=== PATIENT | female | born 1965 | race Caucasian/White ===

== ENCOUNTER 2016-10-04 06:17 | Emergency (ER) | payer MEDICARE, MEDICAID ==
[2016-10-04] MEDS ORDERED: KETOROLAC 60 MG/2 ML VIAL IVP STA (06:58)
[2016-10-04] MEDS ORDERED: HYDROmorphone 1 MG/ML SYRINGE IVP STA (06:58)
[2016-10-04] MEDS ORDERED: KETOROLAC 30 MG/ML VIAL ONE (07:02)
[2016-10-04] MEDS ORDERED: HYDROmorphone 1 MG/ML SYRINGE ONE (07:02)
[2016-10-04] MEDS ORDERED: DEXAMETHASONE 10 MG/ML VIAL IVP STA (08:27)
[2016-10-04] MEDS ORDERED: DEXAMETHASONE 10 MG/ML VIAL ONE (08:38)
[2016-10-04] MEDS ORDERED: SODIUM CHLORIDE 0.9% 1,000 ML IV ONE (09:32)
[2016-10-04] MEDS ORDERED: HYDROcod/ACETAM 5/325 MG TABLET PO STA (09:50)
[2016-10-04] MEDS ORDERED: HYDROcod/ACETAM 5/325 MG TABLET ONE (10:07)
== END 2016-10-04 10:42 | disposition home or self-care (01) ==
DX: S29.012A Strain of muscle and tendon of back wall of thorax, initial encounter (principal); X50.0XXA Overexertion from strenuous movement or load, initial encounter; Y93.E9 Activity, other interior property and clothing maintenance; Y99.0 Civilian activity done for income or pay; I10 Essential (primary) hypertension; E11.9 Type 2 diabetes mellitus without complications; Z79.84 Long term (current) use of oral hypoglycemic drugs; F17.200 Nicotine dependence, unspecified, uncomplicated
CPT/HCPCS: 36415; 71020; 80053; 83690; 84484; 85025; 85651; 93005; 93010; 96374; 96375; 99283; 99285; A9270; J1170

== ENCOUNTER 2016-10-29 04:26 | Emergency (ER) | payer MEDICARE, MEDICAID ==
[2016-10-29] MEDS ORDERED: levoFLOXacin 250 MG TABLET PO STA (05:26)
[2016-10-29] MEDS ORDERED: ACETAMINOPHEN 500 MG TABLET PO ONE (05:28)
[2016-10-29] MEDS ORDERED: ACETAMINOPHEN 500 MG TABLET PO STA (05:28)
[2016-10-29] MEDS ORDERED: levoFLOXacin 250 MG TABLET PO ONE (05:28)
== END 2016-10-29 05:55 | disposition home or self-care (01) ==
DX: J18.9 Pneumonia, unspecified organism (principal); I10 Essential (primary) hypertension; E11.9 Type 2 diabetes mellitus without complications; M79.7 Fibromyalgia; F17.200 Nicotine dependence, unspecified, uncomplicated
CPT/HCPCS: 36415; 71020; 80053; 83690; 85025; 99283; 99284; A9270

== ENCOUNTER 2016-12-02 11:54 | Outpatient (CLI) | payer MEDICARE, MEDICAID ==
--- NOTE | 2016-12-03 22:33 | Mammography Report ---
DIGITAL BILATERAL SCREENING MAMMOGRAM: 12/02/2016 CLINICAL HISTORY: A 51-year-old female in for routine screening mammogram. Patient does have a fami ly history of breast cancer. Maternal aunt at age 53 and a maternal cousin at age 32 developed breas t cancer. Patient has had no prior breast surgeries. COMPARISON: 04/10/2012 TECHNIQUE: Craniocaudad and oblique lateral views of each breast were obtained with [employer] full fie ld digital mammography. FINDINGS: Breast parenchyma is almost entirely composed of fat. Two small, well-circumscribed magy s are noted on oblique lateral view of the right breast. These are seen immediately posterior to the right subareolar region. There is also a small well-circumscribed mass at the 5-6 o'clock position of the right breast. These each measure 2-3 mm in diameter and are of benign etiology. No significa nt clusters of calcification are seen. IMPRESSION: BREASTS APPEAR RADIOGRAPHICALLY BENIGN. BIRADS CATEGORY: 2, BENIGN. RECOMMENDATION: ANNUAL BILATERAL SCREENING MAMMOGRAPHY. STANDARD QUALIFYING STATEMENTS 1. This examination was reviewed with the aid of Computed-Aided Detection (CAD). 2. A negative or benign imaging report should not delay biopsy if clinically suspicious findings are present. Consider surgical consultation if warranted. More than 5% of cancers are not identified b y imaging. 3. Dense breasts may obscure an underlying neoplasm. JOB #: [id number] EXT JOB #:[id number]
== END 2016-12-02 11:55 | disposition home or self-care (01) ==
LOC: DI 11:54
PROVIDERS: ATTEND Internal Medicine
DX: Z12.31 Encounter for screening mammogram for malignant neoplasm of breast (principal); Z80.3 Family history of malignant neoplasm of breast
CPT/HCPCS: 77067

== ENCOUNTER 2017-09-13 15:20 | Emergency (ER) | payer SELFPAY ==
[2017-09-13 16:35] LABS: BILIRUBIN,URINE NEGATIVE (NEGATIVE); CLARITY,URINE SL. CLOUDY (CLEAR); GLUCOSE, URINE (UA) >=1000 mg/dL (NEGATIVE); KETONES,URINE (UA) TRACE mg/dL (NEGATIVE); LEUKOCYTE ESTERASE, URINE TRACE (NEGATIVE); NITRITE,URINE POSITIVE (NEGATIVE); OCCULT BLOOD,URINE SMALL (NEGATIVE); PH,URINE 5.5 PH (5.0-7.5); PROTEIN,URINE 100 mg/dL (NEGATIVE); UROBILINOGEN,URINE 0.2 (NORMAL) E.U./dL (NORMAL)
[2017-09-13 16:42] LABS: BACTERIA,URINE Few /HPF (None Seen); CASTS, URINE 0-2 Fine Granular /LPF; SQUAMOUS EPITHELIAL CELL,UR FEW Squamous (<= Few)
--- NOTE | 2017-09-13 17:23 | ED Physician Documentation ---
PD HPI FEMALE - Stated complaint Stated Complaint: FEMALE - Chief complaint Chief Complaint: UTI - History obtained from History obtained from: Patient - History of Present Illness Timing - onset: Yesterday Timing - duration: Days (2) Timing - details: Gradual onset, Still present Associated symptoms: Back pain, Dysuria, Urinary frequency Contributing factors: No: Similar symptoms before: Diagnosis (UTI) Recently seen: Not recently seen - Additional information Additional information: 51-year-old female has developed signs and symptoms urinary tract infection yesterday. She had has had urinary urgency frequency and dysuria she has some low back pain and some pain in the lower pelvic area. Review of Systems Constitutional: reports: Chills. denies: Fever Eyes: denies: Decreased vision Ears: denies: Ear pain Nose: denies: Rhinorrhea / runny nose, Congestion Throat: denies: Sore throat Cardiac: denies: Chest pain / pressure Respiratory: denies: Cough GI: reports: Abdominal Pain. denies: Nausea, Vomiting : reports: Dysuria, Frequency, Hematuria Skin: denies: Rash Musculoskeletal: reports: Back pain. 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 Psych: Anxiety Musculoskeletal: Fibromyalgia - Past Surgical History Past Surgical History: Yes /BOOMSWING OPERATOR: Hysterectomy - Present Medications Home Medications: Ambulatory Orders Medication Instructions Recorded Confirmed Nitrofurantoin Monohyd/M-Cryst 100 mg PO BID #10 capsule 06/25/17 [Macrobid 100 mg Capsule] Phenazopyridine HCl [Pyridium] 200 mg PO TID PRN #6 tablet 06/25/17 Sulfamethoxazole/Trimethoprim 1 each PO BID #14 tablet 09/13/17 [Sulfamethoxazole-Tmp Ds Tablet] - Allergies Allergies/Adverse Reactions: Allergies Allergy/AdvReac Type Severity Reaction Status Date / Time No Known Drug Allergies Allergy Verified 06/25/17 06:44 - Social History Does the pt smoke?: Yes Smoking Status: Current every day smoker Does the pt drink ETOH?: No Does the pt have substance abuse?: No - Immunizations Immunizations are current?: Yes - POLST Patient has POLST: No PD ED PE NORMAL - Vitals Vital signs reviewed: Yes (hypertensive) - General General: Alert and oriented X 3, Well developed/nourished, Other (51-year-old female with a look of pain on her face including 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 and flattened affect is clutching the left lower side of her abdominal wall above the pelvis.) - HEENT HEENT: PERRL, EOMI - Neck Neck: Supple, no meningeal sign - Respiratory Respiratory: No respiratory distress - Back Back: Other (There is tenderness to the right paraspinous muscles at the L3 level and there is tenderness to the left flank and to bimanual palpation of the left kidney) - Derm Derm: Normal color, Warm and dry, No rash - Extremities Extremities: No deformity, No edema - Neuro Neuro: Alert and oriented X 3, No motor deficit, No sensory deficit, Normal speech Eye Opening: Spontaneous Motor: Obeys Commands Verbal: Oriented GCS Score: 15 - Psych Psych: Normal mood Results - Vitals Vitals: Vital Signs - 24 hr 09/13/17 15:39 Temperature 37.1 C Heart Rate 97 Respiratory 20 Rate Blood Pressure 134/100 H O2 Saturation 98 Oxygen O2 Source Room air - Labs Labs: Laboratory Tests 09/13/17 16:16 Urine Color YELLOW Urine Clarity SL. CLOUDY Urine pH 5.5 Ur Specific [place] >=1.030 H Urine Protein 100 H Urine Glucose (UA) >=1000 H Urine Ketones TRACE Urine Occult Blood SMALL H Urine Nitrite POSITIVE H Urine Bilirubin NEGATIVE Urine Urobilinogen 0.2 (NORMAL) Ur Leukocyte Esterase TRACE H Urine RBC 11-25 H Urine WBC >25 H Ur Squamous Epith Cells FEW Squamous Urine Bacteria Few Urine Casts 0-2 Fine Granular Ur Microscopic Review INDICATED Urine Culture Comments INDICATED PD MEDICAL DECISION MAKING - ED course Complexity details: considered differential, d/w patient ED course: 51-year-old female with urinary symptoms and chills with left flank pain and tenderness to palpation has urinary tract infection on evaluation of the urine. She was diagnosed with pyelonephritis and given an injection of Rocephin as well as some oral Pyridium. We will place her on some sulfamethoxazole trimethoprim. Departure - Departure Disposition: 01 Home, Self Care Clinical Impression: Urinary tract infection Qualifiers: Urinary tract infection type: acute cystitis Hematuria presence: with hematuria Qualified Code(s): N30.01 - Acute cystitis with hematuria Condition: Stable Instructions: ED UTI Cystitis Female Follow-Up: Ebonie Ty MD [Primary Care Provider] - Prescriptions: Sulfamethoxazole/Trimethoprim [Sulfamethoxazole-Tmp Ds Tablet] 1 each PO BID # 14 tablet
[2017-09-13] MEDS ORDERED: PHENAZOPYRIDINE 100 MG TABLET PO STA (17:32)
[2017-09-13] MEDS ORDERED: LIDOCAINE 1% 2 ML VIAL SUBQ ONE (17:39)
[2017-09-13] MEDS ORDERED: cefTRIAXone 1 GM VIAL IM STA (17:39)
[2017-09-13 17:51] VITALS: BP 152/82
== END 2017-09-13 17:58 | disposition home or self-care (01) ==
LOC: ED 15:20
DX: N30.01 Acute cystitis with hematuria (principal); I10 Essential (primary) hypertension; E11.9 Type 2 diabetes mellitus without complications; F17.200 Nicotine dependence, unspecified, uncomplicated
CPT/HCPCS: 81001; 87086; 87181; 96372; 99283; A9270; 81003

== ENCOUNTER 2017-12-22 19:15 | Emergency (ER) | payer MEDICAID ==
--- NOTE | 2017-12-22 20:17 | ED Physician Documentation ---
PD HPI ABD PAIN - Stated complaint Stated Complaint: BACK/ABD PX - Chief complaint Chief Complaint: Abd Pain - History obtained from History obtained from: Patient - History of Present Illness Timing - onset: How many days ago (4) Timing - duration: Days (4) Timing - details: Gradual onset, Waxing and waning (worse today) Quality: Aching, Throbbing (left side abd and left flank. She thought it was UTI at first.), Pain. No: Cramping Location: LLQ Radiation: Left flank, Right flank Improved by: Laying still. No: Eating Worsened by: Moving, Position (lying on back and standing hurt more.). No: Eating, Breathing, Palpation Associated symptoms: Fever (she felt chilled 3-4 days ago, not currently.), Nausea. No: Vomiting, Dysuria, Hematuria, Chest pain, Loss of appetite, Vaginal bleeding, Vaginal dc Similar symptoms before: Diagnosis (similar to UTIs in the past.) Review of Systems Constitutional: reports: Chills, Myalgias. denies: Fever Nose: denies: Rhinorrhea / runny nose, Congestion Throat: denies: Sore throat Respiratory: denies: Cough GI: reports: Abdominal Pain, Nausea. denies: Vomiting, Constipation, Diarrhea, Bloody / black stool : denies: Dysuria, Frequency, Discharge Skin: denies: Rash, Lesions Neurologic: denies: Focal weakness, Numbness, Near syncope, Headache Psychiatric: reports: Anxiety. 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 - Present Medications Home Medications: Ambulatory Orders Medication Instructions Recorded Confirmed Nitrofurantoin Monohyd/M-Cryst 100 mg PO BID #10 capsule 06/25/17 [Macrobid 100 mg Capsule] Phenazopyridine HCl [Pyridium] 200 mg PO TID PRN #6 tablet 06/25/17 Sulfamethoxazole/Trimethoprim 1 each PO BID #14 tablet 09/13/17 [Sulfamethoxazole-Tmp Ds Tablet] HYDROcod/ACETAM 5/325 [[place] 5/325] 1 tab PO Q6H PRN #20 tablet 12/22/17 Methocarbamol [Robaxin] 500 mg PO Q6H PRN #25 tablet 12/22/17 Naproxen [Naprosyn] 500 mg PO BID #20 tablet 12/22/17 - Allergies Allergies/Adverse Reactions: Allergies Allergy/AdvReac Type Severity Reaction Status Date / Time No Known Drug Allergies Allergy Verified 06/25/17 06:44 - Social History Does the pt smoke?: Yes Smoking Status: Current every day smoker Does the pt drink ETOH?: No Does the pt have substance abuse?: No - Immunizations Immunizations are current?: Yes - POLST Patient has POLST: No PD ED PE NORMAL - Vitals Vital signs reviewed: Yes - General General: Alert and oriented X 3, Well developed/nourished, Other (anxious and appears in pain) - HEENT HEENT: Pharynx benign - Neck Neck: Supple, no meningeal sign, No adenopathy - Cardiac Cardiac: RRR, No murmur - Respiratory Respiratory: Clear bilaterally - Abdomen Abdomen: Normal bowel sounds, Soft, Non distended, No organomegaly, Other (some tender LLQ without guarding nor percussion tender. ) - Female Female : Deferred - Rectal Rectal: Deferred - Back Back: Other (not tender in CVA area but lower in left back to palpation. No rash nor sores. ) - Derm Derm: Normal color, Warm and dry, No rash - Neuro Neuro: Alert and oriented X 3, No motor deficit, No sensory deficit, Normal speech Results - Vitals Vitals: Vital Signs - 24 hr 12/22/17 12/22/17 12/22/17 19:19 21:41 23:18 Temperature 37.3 C 37.0 C Heart Rate 111 H 93 90 Respiratory 18 15 16 Rate Blood Pressure 147/102 H 121/64 141/94 H O2 Saturation 97 92 94 Oxygen O2 Source Room air - Labs Labs: Laboratory Tests 12/22/17 12/22/17 12/22/17 21:05 21:50 22:28 WBC 9.4 RBC 5.21 Hgb 14.5 Hct 42.0 MCV 80.7 L MCH 27.9 MCHC 34.5 RDW 14.6 Plt Count 202 MPV 8.8 Neut # (Auto) 7.2 H Lymph # (Auto) 1.4 L [place] # (Auto) 0.5 Eos # (Auto) 0.3 Baso # (Auto) 0.0 Absolute Nucleated RBC 0.00 Nucleated RBC % 0.0 Sodium 134 L Potassium 3.4 L Chloride 101 Carbon Dioxide 23 Anion Gap 10.0 BUN 11 Creatinine 0.6 Estimated GFR (MDRD) 105 Glucose 267 H Calcium 8.6 Total Bilirubin 0.5 AST 23 ALT 23 Alkaline Phosphatase 78 Total Protein 6.6 L Albumin 3.4 Globulin 3.2 Albumin/Globulin Ratio 1.1 Lipase 25 Urine Color ORANGE Urine Clarity CLEAR Urine pH 5.0 Ur Specific [place] >=1.030 H Urine Protein Urine Glucose (UA) SIX SIGMA BLACK TRAINER Urine Ketones TRACE Urine Occult Blood NEGATIVE Urine Nitrite Urine Bilirubin NEGATIVE Urine Urobilinogen 0.2 (NORMAL) Ur Leukocyte Esterase NEGATIVE Urine RBC 0-5 Urine WBC 0-3 Ur Squamous Epith Cells FEW Squamous Amorphous Sediment Rare Urine Bacteria Few Urine Mucus Few Strands Ur Microscopic Review INDICATED Urine Culture Comments NOT INDICATED Urine HCG, Qual NEGATIVE - Rads (name of study) abd/pelvic CT Radiology: Prelim report reviewed (no acute process. No stones renal. no diverticulitis.) PD MEDICAL DECISION MAKING - ED course Complexity details: reviewed results (CT without acute process. CBC is normal. She is afebrile. Does not seem infectious. Presume musculoskeletal pain. ), considered differential (consider UTI, kidney stone, diverticulitis with pain on right lower abd to back, shingles as some examples. ), d/w patient - Sepsis Event Vital Signs: Vital Signs - 24 hr 12/22/17 12/22/17 12/22/17 19:19 21:41 23:18 Temperature 37.3 C 37.0 C Heart Rate 111 H 93 90 Respiratory 18 15 16 Rate Blood Pressure 147/102 H 121/64 141/94 H O2 Saturation 97 92 94 Oxygen O2 Source Room air Departure - Departure Disposition: Home, Self Care Clinical Impression: Low back pain Qualifiers: Chronicity: acute Back pain laterality: left Sciatica presence: without sciatica Qualified Code(s): M54.5 - Low back pain Condition: Stable Record reviewed to determine appropriate education?: Yes Instructions: ED Low Back Pain Injury Prescriptions: HYDROcod/ACETAM 5/325 [[place] 5/325] 1 tab PO Q6H PRN #20 tablet PRN Reason: Pain Methocarbamol [Robaxin] 500 mg PO Q6H PRN #25 tablet PRN Reason: Spasms Naproxen [Naprosyn] 500 mg PO BID #20 tablet Comments: Your CT scan as well as blood tests and urine test are normal. So no signs of kidney stones or abdominal infections. There is no urinary infection. Presume than that it is muscular back pain for now and treated with anti-inflammatories such as naproxen 500 mg twice a day for 7-10 days. Add Robaxin muscle relaxant for spasms and stiffness and Tylenol or hydrocodone if needed for pains. Recheck if not improving over the next few days. Return if other symptoms develop or worsening symptoms. Discharge Date/Time: 12/22/17 23:18
[2017-12-22] MEDS ORDERED: SODIUM CHLORIDE 0.9% 1,000 ML IV ONE (20:45)
[2017-12-22] MEDS ORDERED: KETOROLAC 60 MG/2 ML VIAL IVP STA (20:45)
[2017-12-22] MEDS ORDERED: ONDANSETRON 4 MG/2 ML VIAL IVP STA (20:45)
[2017-12-22] MEDS ORDERED: MORPHINE 10 MG/ML VIAL IVP STA ×2 (20:46→22:38)
[2017-12-22 21:10] LABS: BASOPHILS % (AUTO) 0.4 %; EOSINOPHILS # (AUTO) 0.3 10^3/uL (0.0-0.7); HGB - HEMOGLOBIN 14.5 g/dL (12.0-16.0); LYMPHOCYTES # (AUTO) 1.4 10^3/uL (1.5-3.5); LYMPHOCYTES % (AUTO) 14.7 %; MEAN CORPUSCULAR HEMOGLOBIN 27.9 pg (27.0-31.0); MEAN CORPUSCULAR HGB CONC 34.5 g/dL (32.0-36.0); MEAN CORPUSCULAR VOLUME 80.7 fL (81.0-99.0); MEAN PLATELET VOLUME 8.8 fL (7.9-10.8); MONOCYTES # (AUTO) 0.5 10^3/uL (0.0-1.0); MONOCYTES % (AUTO) 4.9 %; NEUTROPHILS # (AUTO) 7.2 10^3/uL (1.5-6.6); PLT - PLATELET COUNT 202 10^3/uL (130-450); RED BLOOD COUNT 5.21 10^6/uL (4.20-5.40); RED CELL DISTRIBUTION WIDTH 14.6 % (12.0-15.0); WHITE BLOOD COUNT 9.4 x10^3/uL (4.8-10.8)
--- NOTE | 2017-12-22 22:07 | CT Report ---
EXAM: CT ABDOMEN AND PELVIS (CT KUB) EXAM DATE: 12/22/2017 09:31 PM. CLINICAL HISTORY: Left abdomen/flank pain for days. COMPARISONS: None. TECHNIQUE: Routine axial helical CT imaging was performed through the abdomen and pelvis without IV c ontrast. Reconstructions: Coronal and sagittal. In accordance with CT protocol optimization, one or more of the following dose reduction techniques w ere utilized for this exam: automated exposure control, adjustment of mA and/or KV based on patient s ize, or use of iterative reconstructive technique. FINDINGS: Lung Bases: Bibasilar atelectasis, right greater than left. Right Kidney/Ureter: No stones, hydronephrosis, or hydroureter. No perinephric fat stranding. Left Kidney/Ureter: No stones, hydronephrosis, or hydroureter. No perinephric fat stranding. Other Solid Organs: Enlarged spleen, otherwise the noncontrast images of the solid organs are grossly unremarkable. Gallbladder/Bile Ducts: Cholesterol gallstones. No dilated ducts. Peritoneal Cavity: No free fluid, free air or brian adenopathy. Bowel is grossly unremarkable. Pelvic Organs: No bladder stones or wall thickening. Noncontrast images of the visualized pelvic orga ns are unremarkable. Vasculature: Unremarkable. Other: None. IMPRESSION: 1. No kidney or ureteral stones or obstruction. 2. Splenomegaly noted. 3. Cholesterol gallstones noted. [facility] Referring Provider Line: [phone] SITE ID: [id number]
--- NOTE | 2017-12-22 22:07 | CT Preliminary Report ---
Exam: CT KUB IMPRESSION: 1. No kidney or ureteral stones or obstruction. 2. Splenomegaly noted. 3. Cholesterol gallstones noted. [facility] SITE ID: [id number]
[2017-12-22 22:09] LABS: ALBUMIN 3.4 g/dL (3.2-5.5); ALBUMIN/GLOBULIN RATIO 1.1 (1.0-2.2); BILIRUBIN,TOTAL 0.5 mg/dL (0.2-1.0); CALCIUM 8.6 mg/dL (8.5-10.3); CREATININE 0.6 mg/dL (0.4-1.0); TOTAL PROTEIN 6.6 g/dL (6.7-8.2)
[2017-12-22 22:36] LABS: BILIRUBIN,URINE NEGATIVE (NEGATIVE); KETONES,URINE (UA) TRACE mg/dL (NEGATIVE); LEUKOCYTE ESTERASE, URINE NEGATIVE (NEGATIVE); OCCULT BLOOD,URINE NEGATIVE (NEGATIVE); UROBILINOGEN,URINE 0.2 (NORMAL) E.U./dL (NORMAL)
[2017-12-22] MEDS ORDERED: METHOCARBAMOL 500 MG TABLET PO STA (22:38)
[2017-12-22] MEDS ORDERED: HYDROcod/ACET 5/325 Prepack 4 PO STA (22:38)
[2017-12-22 22:39] LABS: CLARITY,URINE CLEAR (CLEAR)
[2017-12-22 22:44] LABS: HCG UR QUAL NEGATIVE
[2017-12-22 22:48] LABS: RBC,URINE 0-5 /HPF (0-5); SQUAMOUS EPITHELIAL CELL,UR FEW Squamous (<= Few)
[2017-12-22 22:49] LABS: AMORPHOUS SEDIMENT,UR Rare /LPF; BACTERIA,URINE Few /HPF (None Seen); MUCUS,URINE Few Strands
[2017-12-22] MEDS ORDERED: DEXAMETHASONE 10 MG/ML VIAL IVP STA (22:56)
[2017-12-22 23:19] VITALS: BP 141/94
== END 2017-12-22 23:18 | disposition home or self-care (01) ==
LOC: ED 19:15
DX: M54.5 Low back pain (principal); I10 Essential (primary) hypertension; E11.9 Type 2 diabetes mellitus without complications; F17.200 Nicotine dependence, unspecified, uncomplicated
CPT/HCPCS: 36415; 74176; 80053; 81001; 81025; 83690; 85025; 96361; 96374; 96375; 96376; 99283; A9270; 81003; 87086

== ENCOUNTER 2018-01-12 13:02 | Emergency (ER) | payer MEDICAID ==
[2018-01-12 13:30] LABS: BILIRUBIN,URINE NEGATIVE (NEGATIVE); GLUCOSE, URINE (UA) >=1000 mg/dL (NEGATIVE); KETONES,URINE (UA) TRACE mg/dL (NEGATIVE); LEUKOCYTE ESTERASE, URINE SMALL (NEGATIVE); NITRITE,URINE POSITIVE (NEGATIVE); OCCULT BLOOD,URINE LARGE (NEGATIVE); PH,URINE 5.5 PH (5.0-7.5); PROTEIN,URINE 30 mg/dL (NEGATIVE); UROBILINOGEN,URINE 0.2 (NORMAL) E.U./dL (NORMAL)
[2018-01-12 13:36] LABS: CLARITY,URINE HAZY (CLEAR)
[2018-01-12 13:37] LABS: BACTERIA,URINE Many /HPF (None Seen); RBC,URINE TNTC /HPF (0-5); SQUAMOUS EPITHELIAL CELL,UR RARE Squamous (<= Few); WBC CLUMPS,URINE PRESENT; YEAST,URINE PRESENT
[2018-01-12] MEDS ORDERED: KETOROLAC 60 MG/2 ML VIAL IVP STA (13:54)
[2018-01-12] MEDS ORDERED: SODIUM CHLORIDE 0.9% 1,000 ML IV ONE (13:54)
[2018-01-12] MEDS ORDERED: PHENAZOPYRIDINE 100 MG TABLET PO STA (14:27)
[2018-01-12] MEDS ORDERED: ONDANSETRON 4 MG/2 ML VIAL IVP STA (14:27)
[2018-01-12] MEDS ORDERED: MORPHINE 2 MG/ML SYRINGE IVP STA ×2 (14:27→15:03)
--- NOTE | 2018-01-12 14:32 | ED Physician Documentation ---
History of Present Illness - Stated complaint Stated Complaint: FEMALE - Chief complaint Chief Complaint: UTI - Additonal information Additional information: hx from pt 52 f recurrent UTIs recent CT AP 1 wk ago neg for kidney and ureteral stones 11 AM today sudden onset severe bladder pain and spasm with hematuria and clots pain rad to low back lux l > R s/p hsyt has one remaining ovary no vag bleed chills no fever Review of Systems Constitutional: denies: Fever, Chills Cardiac: denies: Chest pain / pressure Respiratory: denies: Dyspnea GI: reports: Abdominal Pain : reports: Dysuria, Hematuria. 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, Other Psych: Anxiety Musculoskeletal: Fibromyalgia - Past Surgical History Past Surgical History: Yes /MARKETING SPECIALIST: Hysterectomy - Present Medications Home Medications: Ambulatory Orders Medication Instructions Recorded Confirmed Cephalexin [Keflex] 500 mg PO Q6H #40 capsule 01/12/18 Oxycodone HCl/Acetaminophen 1 each PO Q6HR PRN #10 tablet 01/12/18 [Percocet 5-325 mg Tablet] Phenazopyridine [Pyridium] 100 mg PO Q8H PRN #9 tablet 01/12/18 - Allergies Allergies/Adverse Reactions: Allergies Allergy/AdvReac Type Severity Reaction Status Date / Time No Known Drug Allergies Allergy Verified 01/12/18 14:07 - Social History Does the pt smoke?: Yes Smoking Status: Current every day smoker Does the pt drink ETOH?: No Does the pt have substance abuse?: No - Immunizations Immunizations are current?: Yes - POLST Patient has POLST: No PD ED PE NORMAL - Vitals Vital signs reviewed: Yes - General General: Other (writhing in pain) - Neck Neck: Supple, no meningeal sign - Cardiac Cardiac: RRR - Respiratory Respiratory: No respiratory distress, Clear bilaterally - Abdomen Abdomen: Soft, Other (severe suprapubic pain but my palpation does not worsen pain) - Back Back: No CVA TTP - Derm Derm: Normal color - Extremities Extremities: Normal ROM s pain - Neuro Neuro: Alert and oriented X 3 Results - Vitals Vitals: Vital Signs - 24 hr 01/12/18 01/12/18 01/12/18 13:18 14:55 15:46 Temperature 36.7 C Heart Rate 88 96 86 Respiratory 18 12 16 Rate Blood Pressure 143/128 H 187/90 H 152/98 H O2 Saturation 99 96 95 01/12/18 16:30 Temperature Heart Rate 83 Respiratory 18 Rate Blood Pressure 161/86 H O2 Saturation 93 Oxygen O2 Source Room air - Labs Labs: Laboratory Tests 01/12/18 01/12/18 01/12/18 13:20 15:54 15:54 WBC 9.4 RBC 4.81 Hgb 13.3 Hct 39.2 MCV 81.6 MCH 27.6 MCHC 33.8 RDW 14.4 Plt Count 181 MPV 8.2 Neut # (Auto) 6.2 Lymph # (Auto) 2.3 [place] # (Auto) 0.5 Eos # (Auto) 0.3 Baso # (Auto) 0.1 Absolute Nucleated RBC 0.00 Nucleated RBC % 0.0 Sodium 138 Potassium 3.6 Chloride 106 Carbon Dioxide 23 Anion Gap 9.0 BUN 10 Creatinine 0.6 Estimated GFR (MDRD) 105 Glucose 181 H Calcium 8.4 L Total Bilirubin 0.4 AST 23 ALT 28 Alkaline Phosphatase 74 Total Protein 6.1 L Albumin 3.7 Globulin 2.4 Albumin/Globulin Ratio 1.5 Lipase 41 Urine Color YELLOW Urine Clarity [place] Urine pH 5.5 Ur Specific [place] 1.025 Urine Protein 30 H Urine Glucose (UA) >=1000 H Urine Ketones TRACE Urine Occult Blood LARGE H Urine Nitrite POSITIVE H Urine Bilirubin NEGATIVE Urine Urobilinogen 0.2 (NORMAL) Ur Leukocyte Esterase SMALL H Urine RBC TNTC H Urine WBC >25 H Urine WBC Clumps PRESENT Ur Squamous Epith Cells RARE Squamous Urine Bacteria Many H Urine Yeast PRESENT Ur Microscopic Review INDICATED Urine Culture Comments INDICATED - Rads (name of study) CTA AP Radiology: See rad report (no aneurysm or dissection, no orolithiasis or hydro, unchanged 11 mm fat density lesion R kidney could be renal fat variant or angiolypoma, splenomegaly as before, and as per prior CT cholesterol gallstones (pt advised)) renal sono/bladder Radiology: See rad report (minimal pelvicaliectasis) PD MEDICAL DECISION MAKING - ED course ED course: last urine cx September 2017 E cli sensitive to all - Sepsis Event Vital Signs: Vital Signs - 24 hr 01/12/18 01/12/1801/12/18 13:18 14:55 15:46 Temperature 36.7 C Heart Rate 88 96 86 Respiratory 18 12 16 Rate Blood Pressure 143/128 H 187/90 H 152/98 H O2 Saturation 99 96 95 01/12/18 16:30 Temperature Heart Rate 83 Respiratory 18 Rate Blood Pressure 161/86 H O2 Saturation 93 Oxygen O2 Source Room air Departure - Departure Disposition: 01 Home, Self Care Clinical Impression: Pyelonephritis Condition: Good Follow-Up: [facility] [Provider Group] (call to schedule) Prescriptions: Oxycodone HCl/Acetaminophen [Percocet 5-325 mg Tablet] 1 each PO Q6HR PRN #10 tablet PRN Reason: Severe Pain Cephalexin [Keflex] 500 mg PO Q6H #40 capsule Phenazopyridine [Pyridium] 100 mg PO Q8H PRN #9 tablet PRN Reason: painful urination Comments: The imaging today did not show any acute process to explain the pain But several incidental findings were noticed - a possible tiny fat and blood vessel tumor in the right kidney (for which I recommend you talk to your PMD about getting periodic kidney ultrasounds to monitor for growth), gallstones ( might cause gallbladder colic or even gallbladder infection so if you get right upper abdominal pain seek treatment) and an enlarged spleen (again, follow up with your PMD) You do have a urine/kidney infection so I have prescribed antibiotics But given the amount of blood in your urine I am concerned that there may other problems, possibly even polyps or cancer in the bladder - I strongly strongly recommend you follow up with a urologist for further evaluation such a s a scope of your bladder. For today, since you can urinate, I think it is OK for you to go home on antibiotics. If you find you cannot urinate, you may have a blood clot blocking the bladder from drainin and you will have to come back to the ER for irrigation of the bladder Please follow up with your PMD for a recheck tomorrow if possible, else after the holiday
[2018-01-12] MEDS ORDERED: cefTRIAXone 1 GM in SODIUM CHLORIDE 0.9% MINIBAG 100 ML IV STA (14:35)
[2018-01-12] MEDS ORDERED: ACETAMINOPHEN 1,000 MG/100 ML 100 ML IV STA (15:33)
[2018-01-12] MEDS ORDERED: HYDROmorphone 1 MG/ML CARPUJECT IVP STA (15:38)
[2018-01-12 15:59] LABS: BASOPHILS # (AUTO) 0.1 10^3/uL (0.0-0.1); BASOPHILS % (AUTO) 0.9 %; EOSINOPHILS # (AUTO) 0.3 10^3/uL (0.0-0.7); EOSINOPHILS % (AUTO) 3.4 %; HGB - HEMOGLOBIN 13.3 g/dL (12.0-16.0); LYMPHOCYTES # (AUTO) 2.3 10^3/uL (1.5-3.5); LYMPHOCYTES % (AUTO) 24.8 %; MEAN CORPUSCULAR HEMOGLOBIN 27.6 pg (27.0-31.0); MEAN CORPUSCULAR HGB CONC 33.8 g/dL (32.0-36.0); MEAN CORPUSCULAR VOLUME 81.6 fL (81.0-99.0); MEAN PLATELET VOLUME 8.2 fL (7.9-10.8); MONOCYTES # (AUTO) 0.5 10^3/uL (0.0-1.0); MONOCYTES % (AUTO) 4.9 %; NEUTROPHILS # (AUTO) 6.2 10^3/uL (1.5-6.6); PLT - PLATELET COUNT 181 10^3/uL (130-450); RED BLOOD COUNT 4.81 10^6/uL (4.20-5.40); RED CELL DISTRIBUTION WIDTH 14.4 % (12.0-15.0); WHITE BLOOD COUNT 9.4 x10^3/uL (4.8-10.8)
[2018-01-12 16:09] LABS: ALBUMIN 3.7 g/dL (3.2-5.5); ALBUMIN/GLOBULIN RATIO 1.5 (1.0-2.2); BILIRUBIN,TOTAL 0.4 mg/dL (0.2-1.0); CALCIUM 8.4 mg/dL (8.5-10.3); CREATININE 0.6 mg/dL (0.4-1.0); TOTAL PROTEIN 6.1 g/dL (6.7-8.2)
--- NOTE | 2018-01-12 16:32 | Ultrasound Report ---
Procedure Date: 01/12/2018 Accession Number: [id number] / [id number] Procedure: US - Retroperitoneal CPT Code: FULL RESULT: EXAM: RENAL ULTRASOUND EXAM DATE: 01/12/2018 03:51 PM. CLINICAL HISTORY: Hematuria and infection. Concern for abscess. COMPARISON: None. TECHNIQUE: Real-time scanning was performed with static images obtained. FINDINGS: Right Kidney: 12.4 x 4.6 x 7.0 cm. Normal echotexture with no stones, contour-deforming masses. Minimal pelvocaliectasis. Left Kidney: 13.3 x 4.7 x 5.7 cm. Normal echotexture with no stones, contour-deforming masses, or hydronephrosis. Bladder: Empty bladder. The patient voided prior to the exam. Other: None. IMPRESSION: Minimal pelvocaliectasis on the right, otherwise unremarkable renal ultrasound. [facility]
[2018-01-12] MEDS ORDERED: IOPAMIDOL-300 100 ML VIAL ONE (16:49)
[2018-01-12] MEDS ORDERED: IOPAMIDOL-300 100 ML VIAL IVP ONE (17:11)
--- NOTE | 2018-01-12 17:34 | CT Report ---
Procedure Date: 01/12/2018 Accession Number: [id number] / [id number] Procedure: CT - Abdomen/Pelvis Angio CPT Code: FULL RESULT: EXAM: CT ANGIOGRAM ABDOMEN AND PELVIS WITH CONTRAST EXAM DATE: 01/12/2018 05:08 PM. CLINICAL HISTORY: Severe abd pain and hematuria. COMPARISONS: 12/22/2017. TECHNIQUE: Routine helical CT angiogram imaging was performed through the abdomen and pelvis in the arterial phase. IV contrast: 100 ML ISOVUE 300. Enteric contrast: No. Reconstructions: Coronal, sagittal, and 3D MIP reconstructions. In accordance with CT protocol optimization, one or more of the following dose reduction techniques were utilized for this exam: automated exposure control, adjustment of mA and/or KV based on patient size, or use of iterative reconstructive technique. FINDINGS: Vasculature: There is mild atherosclerotic plaque in the abdominal aorta. No aneurysm or dissection. The mesenteric and renal arteries are patent without evidence of significant stenosis. Lung Bases: There is bibasilar dependent atelectasis. Abdominal Solid Organs: There are low-density gallstones in the gallbladder. Liver appears unremarkable. The spleen is enlarged measuring 18.9 cm in length. The pancreas and adrenal glands are unremarkable. There is a ovoid fat density lesion in the lower pole of the right kidney measuring 11 x 8 x 9 mm series 4 image 111. Kidneys appear otherwise normal. No hydronephrosis or stone. Ureters appear unremarkable. Peritoneal Cavity: Normal. No free fluid, free air, or acute inflammatory process. Pelvic Organs: Urinary bladder is empty and otherwise unremarkable. Uterus not visualized. Ovaries appear normal in size for age. Bones: No significant abnormality. Other: None. IMPRESSION: 1. Mild atherosclerotic vascular disease without aneurysm or dissection. No other significant vascular abnormality. 2. No urolithiasis or hydronephrosis. 3. Probably incidental 11 mm fat density lesion lower pole right kidney. This could be a developmental variant of renal fat versus a small angiomyolipoma. No change. 4. Splenomegaly. [facility]
[2018-01-12 18:23] VITALS: BP 140/91
== END 2018-01-12 18:48 | disposition home or self-care (01) ==
LOC: ED 13:02
DX: N12 Tubulo-interstitial nephritis, not specified as acute or chronic (principal); I10 Essential (primary) hypertension; E11.9 Type 2 diabetes mellitus without complications; Z87.440 Personal history of urinary (tract) infections; F17.200 Nicotine dependence, unspecified, uncomplicated
CPT/HCPCS: 36415; 74174; 76770; 80053; 81001; 83690; 85025; 87086; 87181; 96365; 96367; 96375; 96376; 99284; A9270; J0131; J1170; J2270; Q9967; 81003

== ENCOUNTER 2018-02-16 14:09 | Emergency (ER) | payer MEDICAID ==
[2018-02-16 14:15] VITALS: BP 165/111
--- NOTE | 2018-02-16 14:49 | ED Physician Documentation ---
History of Present Illness - Stated complaint Stated Complaint: NECK PX - Chief complaint Chief Complaint: General - History obtained from History obtained from: Patient - History of Present Illness Timing: Yesterday (1 day worth of bilateral lymph node pain under the jaw more right than left with an earache but no fevers or other upper respiratory symptoms.) Review of Systems Constitutional: denies: Fever, Chills, Fatigue Nose: denies: Rhinorrhea / runny nose, Congestion Throat: reports: Sore throat Cardiac: denies: Chest pain / pressure, Palpitations PD PAST MEDICAL HISTORY - Past Medical History Cardiovascular: Hypertension Endocrine/Autoimmune: Type 2 diabetes 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, Other Psych: Anxiety Musculoskeletal: Fibromyalgia - Past Surgical History Past Surgical History: Yes /PHARMACY INFORMATICIST: Hysterectomy - Present Medications Home Medications: Ambulatory Orders Medication Instructions Recorded Confirmed Amox/Clav 875/125 [Augmentin] 1 each PO Q12H #20 tablet 02/16/18 - Allergies Allergies/Adverse Reactions: Allergies Allergy/AdvReac Type Severity Reaction Status Date / Time No Known Drug Allergies Allergy Verified 02/16/18 14:15 - Social History Does the pt smoke?: Yes Smoking Status: Current every day smoker Does the pt drink ETOH?: No Does the pt have substance abuse?: No - Immunizations Immunizations are current?: Yes - POLST Patient has POLST: No PD ED PE NORMAL - Vitals Vital signs reviewed: Yes - General General: Alert and oriented X 3, No acute distress - HEENT HEENT: Other (She does have tender small submandibular adenopathy right greater than left, oropharynx looks okay albeit with large tonsils but not inflamed and the TMs are normal. Neck is supple.) - Back Back: No spinal TTP - Derm Derm: No rash - Neuro Neuro: Alert and oriented X 3, Normal speech Results - Vitals Vitals: Vital Signs - 24 hr 02/16/18 14:13 Temperature 36.2 C L Heart Rate 96 Respiratory 20 Rate Blood Pressure 165/111 H O2 Saturation 97 Oxygen O2 Source Room air PD MEDICAL DECISION MAKING - Sepsis Event Vital Signs: Vital Signs - 24 hr 02/16/18 14:13 Temperature 36.2 C L Heart Rate 96 Respiratory 20 Rate Blood Pressure 165/111 H O2 Saturation 97 Oxygen O2 Source Room air Departure - Departure Disposition: 01 Home, Self Care Clinical Impression: Lymphadenitis Condition: Good Record reviewed to determine appropriate education?: Yes Instructions: ED Lymphangitis Prescriptions: Amox/Clav 875/125 [Augmentin] 1 each PO Q12H #20 tablet Comments: Call your doctor to arrange a follow-up appointment, make the next available appointment. In the interim, return anytime if worse or if new symptoms develop. Your blood pressure was elevated today on check into the emergency department. This does not mean that you have hypertension, it is a common phenomenon to come to the emergency department and have elevated blood pressure. I recommend that you see your primary care physician within the week to have it rechecked when you are feeling better.
== END 2018-02-16 14:58 | disposition home or self-care (01) ==
LOC: ED 14:09
DX: I88.9 Nonspecific lymphadenitis, unspecified (principal)
CPT/HCPCS: 99283

== ENCOUNTER 2018-03-27 08:46 | Outpatient (CLI) | payer MEDICAID ==
[2018-03-27 09:09] LABS: BASOPHILS # (AUTO) 0.1 10^3/uL (0.0-0.1); EOSINOPHILS # (AUTO) 0.2 10^3/uL (0.0-0.7); EOSINOPHILS % (AUTO) 3.6 %; HGB - HEMOGLOBIN 14.3 g/dL (12.0-16.0); LYMPHOCYTES # (AUTO) 1.9 10^3/uL (1.5-3.5); LYMPHOCYTES % (AUTO) 27.5 %; MEAN CORPUSCULAR HEMOGLOBIN 27.7 pg (27.0-31.0); MEAN CORPUSCULAR HGB CONC 34.9 g/dL (32.0-36.0); MEAN CORPUSCULAR VOLUME 79.6 fL (81.0-99.0); MEAN PLATELET VOLUME 8.3 fL (7.9-10.8); MONOCYTES # (AUTO) 0.3 10^3/uL (0.0-1.0); MONOCYTES % (AUTO) 5.1 %; NEUTROPHILS # (AUTO) 4.3 10^3/uL (1.5-6.6); NEUTROPHILS % (AUTO) 62.8 %; PLT - PLATELET COUNT 187 10^3/uL (130-450); RED BLOOD COUNT 5.16 10^6/uL (4.20-5.40); RED CELL DISTRIBUTION WIDTH 14.8 % (12.0-15.0); WHITE BLOOD COUNT 6.8 x10^3/uL (4.8-10.8)
[2018-03-27 09:29] LABS: ALBUMIN 4.2 g/dL (3.2-5.5); ALBUMIN/GLOBULIN RATIO 1.5 (1.0-2.2); ALKALINE PHOSPHATASE 72 IU/L (42-121); ALT ALANINE AMINOTRANSFERASE 22 IU/L (10-60); AST ASPARTATE AMINOTRANSFERASE 25 IU/L (10-42); BILIRUBIN,TOTAL 0.6 mg/dL (0.2-1.0); BUN - BLOOD UREA NITROGEN 10 mg/dL (6-20); CALCIUM 8.8 mg/dL (8.5-10.3); CARBON DIOXIDE - CO2 22 mmol/L (21-32); CHLORIDE 103 mmol/L (101-111); CHOL/HDL RATIO 5.8 (<4.4); CHOLESTEROL 214 mg/dL; CREATININE 0.6 mg/dL (0.4-1.0); GFR - MDRD 105 (>89); GLUCOSE 238 mg/dL (70-100); HDL CHOLESTEROL 37 mg/dL; LDL CHOLESTEROL,CALCULATED 117 mg/dL; LDL/HDL RATIO 3.2 (<4.4); SODIUM 135 mmol/L (135-145); VLDL CHOLESTEROL 60 mg/dL
[2018-03-27 09:34] LABS: HB2 TOTAL 15.4 g/dL; HEMOGLOBIN A1C 1.2 g/dL; HEMOGLOBIN A1C % 9.3 % (4.6-6.2)
[2018-03-27 10:04] LABS: MUDS CUTOFF CONCENTRATIONS CUTOFF CONC BELOW:
[2018-03-27 10:05] LABS: AMPHETAMINE SCREEN,URINE NEGATIVE (NEGATIVE); BENZODIAZEPINES SCREEN, URINE POSITIVE (NEGATIVE); COCAINE SCREEN URINE NEGATIVE (NEGATIVE); METHADONE SCREEN, URINE NEGATIVE (NEGATIVE); METHAMPHETAMINES SCREEN, URINE NEGATIVE (NEGATIVE); OPIATE SCREEN, URINE NEGATIVE (NEGATIVE); OXYCODONE SCREEN, URINE NEGATIVE (NEGATIVE); PROPOXYPHENE SCREEN, URINE NEGATIVE (NEGATIVE); TRICYCLIC ANTIDEPRESSANT,URINE NEGATIVE (NEGATIVE)
== END 2018-03-27 08:47 | disposition home or self-care (01) ==
LOC: LAB 08:46
PROVIDERS: ATTEND Nurse Practitioner Psychiatric/Mental Health
DX: F41.1 Generalized anxiety disorder (principal)
CPT/HCPCS: 36415; 80053; 80061; 80306; 83036; 83721; 84443; 85025

== ENCOUNTER 2018-05-13 14:29 | Outpatient (CLI) | payer MEDICAID ==
--- NOTE | 2018-05-13 23:10 | Ultrasound Report ---
Reason: OTHER SPECIFIED DISORDERS OF KIDNEY URETER Procedure Date: 05/13/2018 Accession Number: [id number] / [id number] Procedure: US - Retroperitoneal CPT Code: FULL RESULT: EXAM: RENAL ULTRASOUND EXAM DATE: 05/13/2018 04:16 PM. CLINICAL HISTORY: OTHER SPECIFIED DISORDERS OF KIDNEY URETER. COMPARISON: RETROPERITONEAL 01/12/2018 3:21 PM KUB 12/22/2017 9:20 PM. TECHNIQUE: Real-time scanning was performed with static images obtained. FINDINGS: Right Kidney: 13.9 x 6.8 x 5.2 cm. No hydronephrosis. Echogenic nodule in the right lower pole measures 1.3 x 1.2 x 1.1 cm, not significantly changed from previous. Left Kidney: 13.9 x 6.0 x 5.4 cm. Normal echotexture with no stones, contour-deforming masses, or hydronephrosis. Bladder: Bilateral jets seen. The prevoid bladder volume was 398 cc. No postvoid residual.. Other: None. 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 RADIA
== END 2018-05-13 14:30 | disposition home or self-care (01) ==
LOC: DI 14:29
PROVIDERS: ATTEND Internal Medicine
DX: N28.89 Other specified disorders of kidney and ureter (principal)
CPT/HCPCS: 76770

== ENCOUNTER 2018-07-05 10:56 | Emergency (ER) | payer MEDICAID ==
[2018-07-05 11:01] VITALS: BP 102/70
[2018-07-05] MEDS ORDERED: HYDROcod/ACETAM 5/325 MG TABLET PO STA (12:03)
--- NOTE | 2018-07-05 12:06 | ED Physician Documentation ---
PD HPI UPPER EXT INJURY - Stated complaint Stated Complaint: R HAND PX - Chief complaint Chief Complaint: Ext Problem - History obtained from History obtained from: Patient - History of Present Illness Location: Right (She is chronic pain due to carpal tunnel syndrome. Over the last few days it is ramped up on her because she has not been able to find her splint and she is been trying an NSAID without relief. The pain is in the carpal tunnel and radiating out to the mid 3 fingers. She noticed purplish discoloration of those 3 fingers earlier which is now gone. Of note she is a heavy smoker and would like to quit.) Review of Systems Constitutional: denies: Fever, Chills Cardiac: reports: Reviewed and negative Respiratory: reports: Reviewed and negative PD PAST MEDICAL HISTORY - Past Medical History Cardiovascular: Hypertension Endocrine/Autoimmune: Type 2 diabetes, Other DIRECTOR LIFE: Ovarian cysts, Other Psych: Anxiety Musculoskeletal: Fibromyalgia - Past Surgical History Past Surgical History: Yes /DIRECTOR LIFE: Hysterectomy - Present Medications Home Medications: Ambulatory Orders Medication Instructions Recorded Confirmed Glipizide [Glipizide ER] 5 mg PO DAILY 07/05/18 07/05/18 Hydrocodone/Acetaminophen 1 - 2 each PO Q6H PRN #14 tablet 07/05/18 [Hydrocodon-Acetaminophen 5-325] Linagliptin [Tradjenta] 5 mg PO DAILY 07/05/18 07/05/18 Naproxen [Naprosyn] 250 mg PO ONCE 07/05/18 07/05/18 RX: Atorvastatin Calcium 40 mg PO QPM 07/05/18 07/05/18 RX: Lisinopril 10 mg PO DAILY 07/05/18 07/05/18 RX: Omeprazole 20 mg PO DAILY 07/05/18 07/05/18 RX: Tizanidine HCl 4 mg PO TID PRN 07/05/18 07/05/18 RX: hydroCHLOROthiazide 25 mg PO DAILY 07/05/18 07/05/18 [Hydrochlorothiazide] Varenicline Tartrate [Chantix] 0.5 mg PO DAILY #11 tablet 07/05/18 Varenicline Tartrate [Chantix] 1 mg PO BID #154 tablet 07/05/18 - Allergies Allergies/Adverse Reactions: Allergies Allergy/AdvReac Type Severity Reaction Status Date / Time No Known Drug Allergies Allergy Verified 12/23/18 11:01 - Social History Does the pt smoke?: Yes Smoking Status: Current every day smoker Does the pt drink ETOH?: No Does the pt have substance abuse?: No - Immunizations Immunizations are current?: Yes - POLST Patient has POLST: No PD ED PE NORMAL - Vitals Vital signs reviewed: Yes - General General: Alert and oriented X 3, No acute distress - Extremities Extremities: Other (She is tender on the right hand over the carpal tunnel and holding the wrist slightly extended with the fingers slightly slight flexed. She has diminished sensation over median nerve distribution and slight tenderness over the dorsum of the hand. Cap refill is normal.) - Neuro Neuro: Alert and oriented X 3, Normal speech Results - Vitals Vitals: Vital Signs - 24 hr 07/05/18 10:59 Temperature 36.3 C L Heart Rate 92 Respiratory 22 Rate Blood Pressure 102/70 O2 Saturation 100 Oxygen O2 Source Room air PD MEDICAL DECISION MAKING - ED course ED course: The [place] prescription monitoring program was queried with regard to this patient. No concerning findings were found. She was fitted with a Velcro wrist splint and given for hydrocodone here and a prescription for a small number. We discussed the risks and benefits of Chantix which she is very interested in And would like to try it. Departure - Departure Disposition: 01 Home, Self Care Clinical Impression: Carpal tunnel syndrome of right wrist, Tobacco abuse Condition: Good Record reviewed to determine appropriate education?: Yes Instructions: ED Carpal Tunnel Follow-Up: [facility] [Provider Group] Prescriptions: Hydrocodone/Acetaminophen [Hydrocodon-Acetaminophen 5-325] 1 - 2 each PO Q6H PRN #14 tablet PRN Reason: pain Varenicline Tartrate [Chantix] 0.5 mg PO DAILY #11 tablet Varenicline Tartrate [Chantix] 1 mg PO BID #154 tablet Comments: Start Chantix 1 week before target quit date. Call your doctor to arrange a follow-up appointment, make the next available appointment. In the interim, return anytime if worse or if new symptoms develop. Discharge Date/Time: 07/05/18 12:40
== END 2018-07-05 12:40 | disposition home or self-care (01) ==
LOC: ED 10:56
DX: G56.01 Carpal tunnel syndrome, right upper limb (principal); I10 Essential (primary) hypertension; E11.9 Type 2 diabetes mellitus without complications; F17.200 Nicotine dependence, unspecified, uncomplicated; Z79.84 Long term (current) use of oral hypoglycemic drugs
CPT/HCPCS: 99283; A9270

== ENCOUNTER 2018-11-17 17:16 | Emergency (ER) | payer MEDICAID ==
[2018-11-17] MEDS ORDERED: HYDROmorphone 1 MG/ML CARPUJECT IVP STA ×2 (18:00→18:42)
--- NOTE | 2018-11-17 18:02 | ED Physician Documentation ---
PD HPI CHEST PAIN - Stated complaint Stated Complaint: R ARM PX - Chief complaint Chief Complaint: Cardiac - History obtained from History obtained from: Patient - History of Present Illness Timing - onset: Today (53-year-old woman who had a diagnostic left heart cath at [facility] yesterday for anginal symptoms. It was a negative cath. Today she is had progressive right arm and hand pain with difficulty motion. 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: Hysterectomy - Present Medications Home Medications: Ambulatory Orders Medication Instructions Recorded Confirmed Atorvastatin Calcium 40 mg PO QPM 07/05/18 07/05/18 Glipizide [Glipizide ER] 5 mg PO DAILY 07/05/18 07/05/18 Hydrocodone/Acetaminophen 1 - 2 each PO Q6H PRN #14 tablet 07/05/18 [Hydrocodon-Acetaminophen 5-325] Linagliptin [Tradjenta] 5 mg PO DAILY 07/05/18 07/05/18 Lisinopril 10 mg PO DAILY 07/05/18 07/05/18 Naproxen [Naprosyn] 250 mg PO ONCE 07/05/18 07/05/18 Omeprazole 20 mg PO DAILY 07/05/18 07/05/18 Tizanidine HCl 4 mg PO TID PRN 07/05/18 07/05/18 Varenicline Tartrate [Chantix] 0.5 mg PO DAILY #11 tablet 07/05/18 Varenicline Tartrate [Chantix] 1 mg PO BID #154 tablet 07/05/18 hydroCHLOROthiazide 25 mg PO DAILY 07/05/18 07/05/18 [Hydrochlorothiazide] - Allergies Allergies/Adverse Reactions: Allergies Allergy/AdvReac Type Severity Reaction Status Date / Time No Known Drug Allergies Allergy Verified 11/17/18 17:25 - Social History Does the pt smoke?: Yes Smoking Status: Current every day smoker Does the pt drink ETOH?: No Does the pt have substance abuse?: Yes Substance Use and Type: Marijuana - Immunizations Immunizations are current?: Yes - POLST Patient has POLST: No PD ED PE NORMAL - Vitals Vital signs reviewed: Yes - General General: Alert and oriented X 3, No acute distress - Back Back: No CVA TTP, No spinal TTP - Derm Derm: Normal color, Warm and dry - Extremities Extremities: Other (The area around the puncture site for the right radial artery is clean and dry with minimal ecchymosis and no real swelling per se. She refuses to move the wrist due to pain, and she is quite tender, unable to palpate a radial pulse, potentially because of that but the nurse says she can Doppler. She has pretty normal cap refill in that hand.) - Neuro Neuro: Alert and oriented X 3, Normal speech Results - Vitals Vitals: Vital Signs - 24 hr 11/17/18 11/17/18 11/17/18 17:22 18:55 20:57 Temperature 36.9 C Heart Rate 92 89 89 Respiratory 18 18 24 Rate Blood Pressure 126/80 148/94 H 123/85 H O2 Saturation 97 99 93 Oxygen O2 Source Room air Procedures - General procedure General procedure: She was difficult for IV access and I personally placed a long 22-gauge IV in the deep brachial vein on the left using real-time ultrasound guidance. PD MEDICAL DECISION MAKING - ED course ED course: 53-year-old woman with severe right hand and wrist pain status post coronary angiography via that vessel yesterday. Difficult to palpate pulses but some of that is due to pain and tenderness. Capillary refill is okay. I spoke with Dr. Mansfield at [facility] who recommended a duplex arterial ultrasound. He is available if necessary at [phone]. The ultrasound was negative. The IV which was difficult to place subsequently infiltrated. That actually caused her more pain than the other side, only saline had a gone in there so it really should not be dangerous. I spoke with the electronic equipment installer again who felt that given the normal vascular ultrasound this can be treated conservatively. Departure - Departure Disposition: 01 Home, Self Care Clinical Impression: Postprocedural pain of extremity following cardiac catheterization Condition: Good Record reviewed to determine appropriate education?: Yes Instructions: Cath Cardiac Dc Comments: If you are having persistent symptoms tomorrow call your electronic equipment installer for follow-up.
--- NOTE | 2018-11-17 20:55 | Ultrasound Report ---
Reason: RUE pain after cath yesterday Procedure Date: 11/17/2018 Accession Number: [id number] / [id number] Procedure: US - Duplex Upr Ext Arterial RT CPT Code: FULL RESULT: EXAM: RIGHT LOWER EXTREMITY ARTERIAL DOPPLER ULTRASOUND EXAM DATE: 11/17/2018 08:15 PM. CLINICAL HISTORY: Right upper extremity pain after cath yesterday. Right hand pain. COMPARISON: None. TECHNIQUE: Real-time sonographic vascular imaging was performed by the key bed installer, utilizing color-flow, Doppler flow, and spectral analysis. Multiple jewelry sales representative static images were saved for review. FINDINGS: RIGHT Upper Extremity Arterial Velocities: Innominate: 93 cm/sec. Subclavian: Proximal 81 cm/sec. Mid - unable to see. Distal - unable to see. Axillary: 104 cm/sec. Brachial: Proximal 80 cm/sec, distal 72 cm/sec. Radial artery: Proximal 41 cm/sec, distal 34 cm/sec. Ulnar artery: Proximal 30 cm/sec, distal 49 cm/sec. IMPRESSION: No evidence for hemodynamically significant stenosis or occlusion. No evidence for pseudoaneurysm. Limited visualization as above. RADIA
[2018-11-17] MEDS ORDERED: SODIUM CHLORIDE 0.9% 1,000 ML IV ONE (21:32)
[2018-11-17] MEDS ORDERED: HYDROmorphone 2 MG/ML VIAL IVP STA (21:32)
[2018-11-17] MEDS ORDERED: HYDROmorphone 1 MG/ML CARPUJECT IM STA (21:52)
[2018-11-17] MEDS ORDERED: oxyCODONE/ACET 5/325 Prepack 4 PO STA (21:55)
[2018-11-17 22:04] VITALS: BP 134/84
== END 2018-11-17 22:15 | disposition home or self-care (01) ==
LOC: ED 17:16
DX: G89.18 Other acute postprocedural pain (principal); I10 Essential (primary) hypertension; I20.9 Angina pectoris, unspecified; E11.9 Type 2 diabetes mellitus without complications; Z79.84 Long term (current) use of oral hypoglycemic drugs; F17.200 Nicotine dependence, unspecified, uncomplicated
CPT/HCPCS: 93931; 96374; 96375; 96376; 99283; 99284; J1170; 80053; 83690; 85025